=== PATIENT | female | born 1960 | race Caucasian/White ===

== ENCOUNTER 2016-09-14 09:51 | Emergency (ER) | payer OTHER ==
[~2016-09-14] VITALS: Ht 162.6 cm; Wt 68.0 kg
[~2016-09-14 09:51] MED LIST: BENTYL20 MG PO; FLEXERIL10 MG PO; PERCOCET 325 MG1 TA2 PO; TAMIFLU 75MG75 MG PO; TESSALON PERLE100 MG PO; TYLENOL ES500 MG PO; ZOFRAN4 M1 SL
--- NOTE | 2016-09-14 10:23 | ED UPPER/LOWER EXTREMITY COMPL ---
History of Present Illness General Chief Complaint: Lower Extremity Injury Stated Complaint: "BUBBLE ON MY MAHONEY" Source: patient Exam Limitations: no limitations Vital Signs & Intake/Output Vital Signs & Intake/Output Vital Signs Date Time Temp Pulse Resp B/P Pulse O2 O2 Flow FiO2 Ox Delivery Rate 09/14 1151 97.7 77 18 110/56 98 Room Air 09/14 1150 98 09/14 0953 96.1 78 20 109/55 98 Room Air Room Air Allergies Coded Allergies: perphenazine (VOMITING 09/14/16) codeine (GI 09/14/16) hydrocodone (GI 09/14/16) tramadol (GI 09/14/16) Reconcile Medications Oxycodone HCl/Acetaminophen (Percocet 5-325 MG Tablet) 5 MG-325 MG TABLET 1 TAB PO BID PRN PAIN Triage Note: PT TO ED WITH C/O RIGHT MAHONEY PAIN, DENIES FALL OR INJURY TO THE AREA, "I HAD RIGHT ANKLE SURGERY IN [facility]" "I JUST WANT TO MAKE SURE IT'S NOT ANYTHING". NO REDNESS OR SWELLING NOTED. Triage Nurses Notes Reviewed? yes HPI: 56-year-old female arrived to triage [facility] a complaining of right mid MAHONEY pain. She reports 6 months ago she had surgery on her right foot and has continued pain since then that radiates up her leg. She denies any pain in her foot, it's the pain in the right mid mahoney area. She feels like there is a bubble underneath her skin and it is very sensitive to touch. She denies any fever or chills she is able to ambulate very well. Pain is [address] Guzmán has been aware of this pain since her surgery 6 months ago. (VAMSHI BOYLE APRN) Past History Travel History Traveled to [place] past 21 day No Medical History Any Pertinent Medical History? see below for history Neurological: NONE EENT: NONE Cardiovascular: NONE Respiratory: NONE Gastrointestinal: GASTRITIS Hepatic: NONE Renal: NONE Musculoskeletal: BACK SPASM Psychiatric: NONE Endocrine: NONE Blood Disorders: NONE Cancer(s): NONE NEUROPHYSIOLOGY TECH/Reproductive: NONE History of CDIFF: No Tetanus Vaccine: 06/10/12 Surgical History Surgical History: RIGHT FOOT SURGERY Psychosocial History What is your primary language Montenegrin Tobacco Use: Quit >30 days ago ETOH Use: denies use Illicit Drug Use: denies illicit drug use Family History Hx Contributory? No (VAMSHI BOYLE APRN) Review of Systems Review of Systems Constitutional: Reports: no symptoms. EENTM: Reports: no symptoms. Respiratory: Reports: no symptoms. Cardiovascular: Reports: no symptoms. Gastrointestinal/Abdominal: Reports: no symptoms. Genitourinary: Reports: no symptoms. Musculoskeletal: Reports: see HPI. Skin: Reports: no symptoms. Neurological/Psychological: Reports: no symptoms. Hematologic/Endocrine: Reports: no symptoms. Immunological: Reports: no symptoms. All Other Systems: Reviewed and Negative (VAMSHI BOYLE APRN) Physical Exam Physical Exam General Appearance: well developed/nourished, mild distress Head: atraumatic Eyes: Bilateral: PERRL, EOMI. Ears, Nose, Throat: normal pharynx, normal ENT inspection, hearing grossly normal Neck: normal inspection, supple Cardiovascular/Respiratory: regular rate/rhythm Peripheral Pulses: 2+ radial (R), 2+ radial (L), 2+ tibialis posterior (R), 2+ tibialis posterior ( L), 2+ dorsalis pedis (R), 2+ dorsalis pedis (L) Back: normal inspection Leg Left: normal range of motion, normal inspection Leg Right: normal range of motion, normal inspection, SUPERFICIAL TENDERNESS RIGHT MAHONEY WITH NO ERYTHEMA, ABSCESS, MASS Skin: intact, normal color, warm/dry Lymphatic: no anterior cervical shanna (VAMSHI BOYLE APRN) Progress Differential Diagnosis: DVT, PHLEBITIS Plan of Care: Orders Procedure Date/time Status US-UNILATERAL VENOUS DOPPLER 09/14 1021 Active Diagnostic Imaging: Viewed by Me: Ultrasound. Discussed w/RAD: Ultrasound. Comments: PATIENT: SANDY MONDRAGON PRESENT AGE: 56 PATIENT ACCOUNT NO: [id number] : 60 LOCATION: [facility] ORDERING PHYSICIAN: VAMSHI BOYLE APRN SERVICE DATE: 09/14/16 EXAM TYPE: US - US-UNILATERAL VENOUS DOPPLER EXAMINATION: US TRIPLEX LOWER EXTREMITY, RIGHT CLINICAL INFORMATION: Right lower extremity pain, varicosity, swelling for 5 days. COMPARISON: None. TECHNIQUE: Color-flow triplex imaging with spectral analysis and compression Doppler were performed on the right lower extremity. FINDINGS: Respiratory variation, normal compression and augmented flow are noted throughout the lower extremity. The visualized common femoral vein, superficial femoral vein, profunda femoral vein, popliteal vein and mid calf peroneal and posterior tibial venous segments show no evidence of deep venous thrombosis. There is no Fofana's cyst. IMPRESSION: Normal triplex scan without evidence of deep venous thrombosis involving the right lower extremity. DICTATED BY: SYBIL REINOSO MD DATE/TIME DICTATED:09/14/161119 CUSTOM PROTECTION OFFICER:RAYRAY DATE/TIME TRANSCRIBED:09/14/161119 CONFIDENTIAL, DO NOT COPY WITHOUT APPROPRIATE AUTHORIZATION. <Electronically signed in Other Vendor System> SIGNED BY: SYBIL REINOSO MD 09/14/161123 Explained ultrasound results with the patient and the need to follow up with her primary care provider. She states she was discharged from Dr. Argueta's office and that Dr. Guzmán has been taking care of her foot and her leg. She will follow up with Dr. Guzmán this week before she leaves to [place]. I explained that there is no signs of infection or clotting in her leg. (VAMSHI BOYLE APRN) Departure Departure Time of Disposition: 1143 Disposition: HOME OR SELF CARE Condition: Stable Clinical Impression Primary Impression: Right leg pain Referrals: LENNY GUZMÁN DPM Additional Instructions: Please follow-up with Dr. Guzmán before relief from [place]. There is no signs of infection or any clots in the right lower extremity. Percocet has needed for pain Departure Forms: Customer Survey General Discharge Information Prescriptions: Current Visit Scripts Oxycodone HCl/Acetaminophen (Percocet 5-325 MG Tablet) 1 TAB PO BID PRN PAIN #10 TAB (VAMSHI BOYLE APRN) PA/GANTRY RIGGER Co-Sign Statement Statement: ED Attending supervision documentation- [] I saw and evaluated the patient. I have also reviewed all the pertinent lab results and diagnostic results. I agree with the findings and the plan of care as documented in the PA's/GANTRY RIGGER's documentation. [X] I have reviewed the ED Record and agree with the PA's/GANTRY RIGGER's documentation. [] Additions or exceptions (if any) to the PAs/GANTRY RIGGER's note and plan are summarized below: [] (MARILU MILLAN,FAVIAN)
--- NOTE | 2016-09-14 11:24 | ULTRASOUND REPORT ---
EXAMINATION: US TRIPLEX LOWER EXTREMITY, RIGHT CLINICAL INFORMATION: Right lower extremity pain, varicosity, swelling for 5 days. COMPARISON: None. TECHNIQUE: Color-flow triplex imaging with spectral analysis and compression Doppler were performed on the right lower extremity. FINDINGS: Respiratory variation, normal compression and augmented flow are noted throughout the lower extremity. The visualized common femoral vein, superficial femoral vein, profunda femoral vein, popliteal vein and mid calf peroneal and posterior tibial venous segments show no evidence of deep venous thrombosis. There is no Fofana's cyst. IMPRESSION: Normal triplex scan without evidence of deep venous thrombosis involving the right lower extremity.
[2016-09-14] MEDS ORDERED: PERCOCET 5-3251 EACH PO (11:46)
[2016-09-14 11:51] VITALS: BP 110/56
== END 2016-09-14 11:45 ==
LOC: ERH 09:51
DX: M79.604 Pain in right leg (principal)